=== PATIENT | female | born 1990 | race African-American/Black ===

== ENCOUNTER 2021-08-17 17:44 | Emergency (ER) | payer SELFPAY | END 2021-08-17 19:48 | disposition home or self-care (01) | LOC: CSHERS 17:44 | DX: J01.90 Acute sinusitis, unspecified (principal) | CPT/HCPCS: 99283 ==

== ENCOUNTER 2021-11-20 22:09 | Emergency (ER) | payer SELFPAY ==
[2021-11-21 15:38] LABS: SARS-CoV-2 PCR by NAA Not Detected (NotDetected)
== END 2021-11-21 00:39 | disposition home or self-care (01) ==
LOC: CSHERS 22:09
DX: J06.9 Acute upper respiratory infection, unspecified (principal); Z20.822 Contact with and (suspected) exposure to COVID-19
CPT/HCPCS: 99283; U0003; U0005

== ENCOUNTER 2022-03-16 19:46 | Emergency (ER) | payer SELFPAY ==
[2022-03-16 20:21] LABS: #Basophils 0.1 10x3/uL (0.0-0.2); #Monocytes 0.7 10x3/uL (0.0-1.1); #Neutrophils 5.2 10x3/uL (1.5-8.4); %Basophils 0.6 % (0.0-2.0); %Eosinophils 0.4 % (0.0-6.0); %Lymphocytes 35.2 % (18.0-47.0); %Monocytes 7.1 % (0.0-10.0); %Neutrophils 56.5 % (40.0-75.0); Hemoglobin 13.3 g/dL (12.0-15.5); Mean Corpuscular HGB CONC 32.6 g/dL (32.0-36.0); Mean Corpuscular Hemoglobin 26.7 pg (27.0-33.0); Mean Corpuscular Volume 81.9 fl (81.6-98.3); Mean Platelet Volume 10.1 fl (7.4-10.4); Platelet Count 332 10x3/uL (150-450); RBC Distribution Width 13.6 % (11.5-14.5); Red Blood Cell (RBC) Count 4.98 10x6/uL (3.90-5.03); White Blood Cell (WBC) Count 9.3 10x3/uL (3.5-10.5)
[2022-03-16] MEDS ORDERED: Lorazepam 2 MG/ML VIAL ONE (20:21)
[2022-03-16 20:28] LABS: BHCG - Serum Negative (NEGATIVE); Pregs Control Background? CLEAR/WHITE (CLR/WHITE); Pregs Control Bar Appear? YES (CONTROL BAR)
[2022-03-16 20:35] LABS: ALT (SGPT) 26 U/L (8-55); AST (SGOT) 21 U/L (5-34); Albumin 4.7 g/dL (3.5-5.0); Alkaline Phosphatase 63 U/L (40-110); Anion Gap 16 mmol/L (10-20); BUN (Urea Nitrogen) 14 mg/dL (7.0-18.7); Bilirubin, Total 0.6 mg/dL (0.2-1.2); Calc. Creatinine Clearance 0 mL/min (70-130); Calcium 10.1 mg/dL (7.8-10.44); Carbon Dioxide 23 mmol/L (22-29); Chloride 105 mmol/L (98-107); Globulin 3.7 g/dL (2.4-3.5); Glucose 105 mg/dL (70-105); Lipase 16 U/L (8-78); Potassium 3.7 mmol/L (3.5-5.1); Protein, Total 8.4 g/dL (6.0-8.3); Sodium 140 mmol/L (136-145)
[2022-03-16 21:17] LABS: Bilirubin Neg (Negative); Blood, Urine Negative (Negative); Clarity Clear (Clear); Glucose, Urine (Dipstick) Normal (Negative); Ketone, Urine 50 mg/dL (Negative); Leukocyte 25 (Negative); Nitrite Negative (Negative); Protein, Urine (Dipstick) 15 mg/dl (Neg-Trace)
[2022-03-16 21:25] LABS: Amphetamine Not Detected (NotDetected); Barbiturates Screen Not Detected (NotDetected); Benzodiazepine Screen Not Detected (NotDetected); Cocaine Metabolite Screen Not Detected (NotDetected); Methadone Not Detected (NotDetected); Methamphetamine Not Detected (NotDetected); Opiate Screen Not Detected (NotDetected); Oxycodone Screen Not Detected (NotDetected); Phencyclidine (PCP) Not Detected (NotDetected); THC/Cannabinoid Screen Detected (NotDetected); Tricyclic Screen Not Detected (NotDetected)
[2022-03-16] MEDS ORDERED: Aspirin 325 MG TAB ONE (21:55)
[2022-03-16 22:03] LABS: Bacteria/HPF Rare-Few HPF (None Seen); RBC/HPF 0-3 HPF (0-3)
[2022-03-16] MEDS ORDERED: Ketorolac Tromethamine 30 MG/ML VIAL ONE (22:03)
== END 2022-03-16 22:28 | disposition home or self-care (01) ==
LOC: CSHERS 19:46
DX: R07.89 Other chest pain (principal); F41.9 Anxiety disorder, unspecified; F32.A Depression, unspecified
CPT/HCPCS: 71045; 80053; 80306; 81003; 81015; 83605; 83690; 84484; 84703; 85025; 85379; 93005; 96374; 96375; J1885; J2060

== ENCOUNTER 2023-06-12 15:53 | Inpatient (IN) | payer SELFPAY ==
[~2023-06-12 15:53] MED LIST: Iopamidol 370 76% 100 ML VIAL ONE
[2023-06-12 17:05] LABS: #Eosinphils 0.1 10x3/uL (0.0-0.5); #Monocytes 0.5 10x3/uL (0.0-1.1); #Neutrophils 3.9 10x3/uL (1.5-8.4); %Basophils 0.4 % (0.0-2.0); %Eosinophils 1.6 % (0.0-6.0); %Lymphocytes 37.4 % (18.0-47.0); %Monocytes 7.2 % (0.0-10.0); %Neutrophils 53.3 % (40.0-75.0); Hematocrit 39.8 % (34.9-44.5); Hemoglobin 12.7 g/dL (12.0-15.5); Mean Corpuscular HGB CONC 31.9 g/dL (32.0-36.0); Mean Corpuscular Hemoglobin 27.2 pg (27.0-33.0); Mean Corpuscular Volume 85.2 fl (81.6-98.3); Mean Platelet Volume 10.6 fl (7.4-10.4); Platelet Count 276 10x3/uL (150-450); RBC Distribution Width 13.6 % (11.5-14.5); Red Blood Cell (RBC) Count 4.67 10x6/uL (3.90-5.03); White Blood Cell (WBC) Count 7.4 10x3/uL (3.5-10.5)
[2023-06-12 17:21] LABS: Troponin I Less than 0.010 ng/mL (< 0.028)
[2023-06-12 17:22] LABS: BHCG - Serum Negative (NEGATIVE); Pregs Control Background? CLEAR/WHITE (CLR/WHITE); Pregs Control Bar Appear? YES (CONTROL BAR)
[2023-06-12 17:35] LABS: ALT (SGPT) 18 U/L (8-55); AST (SGOT) 25 U/L (5-34); Alkaline Phosphatase 75 U/L (40-110); Anion Gap 15 mmol/L (10-20); BUN (Urea Nitrogen) 8 mg/dL (7.0-18.7); Bilirubin, Total 0.3 mg/dL (0.2-1.2); CK (CPK) 311 U/L (29-168); Calc. Creatinine Clearance 0 mL/min (70-130); Calcium 8.8 mg/dL (7.8-10.44); Carbon Dioxide 20 mmol/L (22-29); Chloride 108 mmol/L (98-107); Estimated GFR 117; Globulin 3.2 g/dL (2.4-3.5); Glucose 80 mg/dL (70-105); Lipase 23 U/L (8-78); Magnesium 2.1 mg/dL (1.6-2.6); Potassium 4.1 mmol/L (3.5-5.1); Protein, Total 7.2 g/dL (6.0-8.3); Sodium 139 mmol/L (136-145)
[2023-06-12] MEDS ORDERED: Ketorolac Tromethamine 30 MG/ML VIAL ONE (18:41)
[2023-06-12] MEDS ORDERED: fentaNYL 50 mcg/mL 1 mL Vial ONE (19:16)
[2023-06-12] MEDS ORDERED: Aspirin 81 mg Enteric Coated Tablet ONE (19:17)
[2023-06-12] MEDS ORDERED: Aspirin Chewable 81 MG TAB ONE (19:19)
[2023-06-12] MEDS ORDERED: Acetaminophen 325 MG TAB PO PRN (20:51)
[2023-06-12] MEDS ORDERED: Calcium Carbonate 500 MG ChewTAB PO PRN (20:51)
[2023-06-12] MEDS ORDERED: Ondansetron PF 4 MG/2 ML Vial IVP PRN (20:51)
[2023-06-12] MEDS ORDERED: Guaifenesin DM 100-10/5 ML UDCUP PO PRN (20:51)
[2023-06-12] MEDS ORDERED: Lactated Ringer's 1,000 ML IV SCH ×2 (21:00)
[2023-06-12] MEDS ORDERED: Lactated Ringer's 500 ML IV SCH (21:00)
[2023-06-12 22:38] VITALS: BMI 33.0
[2023-06-12] MEDS ORDERED: Lidocaine 4% Patch TD SCH (23:00)
[2023-06-12] MEDS ORDERED: Ketorolac Tromethamine 30 MG/ML VIAL IVP SCH (23:00)
[2023-06-12] MEDS: Nicotine 14 MG PATCH TD SCH (23:08)
[2023-06-13] MEDS: Dextrose 5%-Lactated Ringers 1,000 ML IV SCH ×4 (01:16→21:58)
[2023-06-13 07:14] LABS: ALT (SGPT) 15 U/L (8-55); AST (SGOT) 15 U/L (5-34); Albumin 3.4 g/dL (3.5-5.0); Alkaline Phosphatase 61 U/L (40-110); Anion Gap 12 mmol/L (10-20); BUN (Urea Nitrogen) 8 mg/dL (7.0-18.7); Bilirubin, Total 0.3 mg/dL (0.2-1.2); CK (CPK) 187 U/L (29-168); Calc. Creatinine Clearance 160 mL/min (70-130); Calcium 8.3 mg/dL (7.8-10.44); Carbon Dioxide 22 mmol/L (22-29); Chloride 107 mmol/L (98-107); Estimated GFR 117; Globulin 2.5 g/dL (2.4-3.5); Glucose 96 mg/dL (70-105); Potassium 3.7 mmol/L (3.5-5.1); Protein, Total 5.9 g/dL (6.0-8.3); Sodium 137 mmol/L (136-145)
[2023-06-13 07:20] LABS: #Basophils 0.1 10x3/uL (0.0-0.2); #Eosinphils 0.2 10x3/uL (0.0-0.5); #Monocytes 0.4 10x3/uL (0.0-1.1); #Neutrophils 2.3 10x3/uL (1.5-8.4); %Basophils 0.9 % (0.0-2.0); %Eosinophils 2.9 % (0.0-6.0); %Lymphocytes 45.8 % (18.0-47.0); %Monocytes 7.8 % (0.0-10.0); %Neutrophils 42.4 % (40.0-75.0); Hematocrit 36.1 % (34.9-44.5); Hemoglobin 11.4 g/dL (12.0-15.5); Mean Corpuscular HGB CONC 31.6 g/dL (32.0-36.0); Mean Corpuscular Hemoglobin 26.6 pg (27.0-33.0); Mean Corpuscular Volume 84.1 fl (81.6-98.3); Mean Platelet Volume 10.5 fl (7.4-10.4); Platelet Count 278 10x3/uL (150-450); RBC Distribution Width 13.6 % (11.5-14.5); Red Blood Cell (RBC) Count 4.29 10x6/uL (3.90-5.03); White Blood Cell (WBC) Count 5.5 10x3/uL (3.5-10.5)
[2023-06-13 08:15] LABS: Bilirubin Neg (Negative); Blood, Urine Negative (Negative); Clarity Slightly Cloudy (Clear); Glucose, Urine (Dipstick) Normal (Negative); Ketone, Urine Negative (Negative); Leukocyte 500 (Negative); Nitrite Negative (Negative); Protein, Urine (Dipstick) Negative (Neg-Trace); Specific Gravity, Urine 1.015 (1.005-1.030); Urobilinogen Normal mg/dL (Less than 2)
[2023-06-13 08:23] LABS: Amphetamine Not Detected (NotDetected); Barbiturates Screen Not Detected (NotDetected); Benzodiazepine Screen Not Detected (NotDetected); Cocaine Metabolite Screen Not Detected (NotDetected); Methadone Not Detected (NotDetected); Methamphetamine Not Detected (NotDetected); Opiate Screen Not Detected (NotDetected); Oxycodone Screen Not Detected (NotDetected); Phencyclidine (PCP) Not Detected (NotDetected); THC/Cannabinoid Screen Not Detected (NotDetected); Tricyclic Screen Not Detected (NotDetected)
[2023-06-13] MEDS: busPIRone HCl 5 MG TAB PO SCH ×2 (08:25→20:19)
[2023-06-13] MEDS: FLUoxetine HCl 20 MG CAP PO SCH (08:25)
[2023-06-13 08:56] LABS: Bacteria/HPF 2+ HPF (None Seen); RBC/HPF 0-3 HPF (0-3)
[2023-06-13] MEDS ORDERED: Transdermal Patch Removal TOP SCH (11:00)
[2023-06-13] MEDS: Acetaminophen 500 MG TAB PO PRN (17:42)
[2023-06-13] MEDS: Nicotine 14 MG PATCH TD SCH (21:58)
[2023-06-14 04:38] LABS: Troponin I Less than 0.010 ng/mL (< 0.028)
[2023-06-14] MEDS: Dextrose 5%-Lactated Ringers 1,000 ML IV SCH (06:33)
[2023-06-14] MEDS: Acetaminophen 500 MG TAB PO PRN (07:03)
[2023-06-14] MEDS: FLUoxetine HCl 20 MG CAP PO SCH (09:11)
[2023-06-14] MEDS: busPIRone HCl 5 MG TAB PO SCH (09:11)
[2023-06-14 13:42] VITALS: BP 125/75; TEMP 98.3
== END 2023-06-14 14:30 | disposition home or self-care (01) | DRG 312 ==
LOC: CSHERS 15:53 → CSHTELE 22:21
PROVIDERS: ADMIT Student in an Organized Health Care Education/Training Program; ATTEND Hospitalist
DX: I95.1 Orthostatic hypotension (principal); E86.0 Dehydration; R93.0 Abnormal findings on diagnostic imaging of skull and head, not elsewhere classified; F41.9 Anxiety disorder, unspecified; F31.9 Bipolar disorder, unspecified; F43.10 Post-traumatic stress disorder, unspecified; I10 Essential (primary) hypertension; Z79.899 Other long term (current) drug therapy
CPT/HCPCS: 36415; 36416; 70450; 70551; 71275; 72125; 80053; 80306; 81001; 82550; 83690; 83735; 83880; 84443; 84484; 84703; 85025; 93005; 93306; 96374; J1650; J1885; J3010; J7120; Q9967

== ENCOUNTER 2023-12-24 16:47 | Emergency (ER) | payer SELFPAY ==
[2023-12-24] MEDS ORDERED: Ketorolac Tromethamine 30 MG (1 mL) VIAL ONE (17:32)
[2023-12-24 17:47] LABS: BHCG - Serum Negative (NEGATIVE); Pregs Control Background? CLEAR/WHITE (CLR/WHITE); Pregs Control Bar Appear? YES (CONTROL BAR)
[2023-12-24 17:52] LABS: ALT (SGPT) 24 U/L (8-55); AST (SGOT) 20 U/L (5-34); Albumin 4.1 g/dL (3.5-5.0); Alkaline Phosphatase 77 U/L (40-110); Anion Gap 11 mmol/L (10-20); BUN (Urea Nitrogen) 14 mg/dL (7.0-18.7); Bilirubin, Total 0.3 mg/dL (0.2-1.2); Calc. Creatinine Clearance 0 mL/min (70-130); Carbon Dioxide 25 mmol/L (22-29); Chloride 108 mmol/L (98-107); Estimated GFR 97; Globulin 3.2 g/dL (2.4-3.5); Glucose 80 mg/dL (70-105); Potassium 3.9 mmol/L (3.5-5.1); Protein, Total 7.3 g/dL (6.0-8.3); Sodium 140 mmol/L (136-145)
[2023-12-24 17:56] LABS: #Basophils 0.1 10x3/uL (0.0-0.2); #Eosinphils 0.2 10x3/uL (0.0-0.5); #Monocytes 0.8 10x3/uL (0.0-1.1); #Neutrophils 3.9 10x3/uL (1.5-8.4); %Basophils 0.7 % (0.0-2.0); %Eosinophils 2.2 % (0.0-6.0); %Lymphocytes 31.3 % (18.0-47.0); %Monocytes 11.2 % (0.0-10.0); %Neutrophils 54.3 % (40.0-75.0); Hematocrit 40.2 % (34.9-44.5); Hemoglobin 12.6 g/dL (12.0-15.5); Mean Corpuscular HGB CONC 31.3 g/dL (32.0-36.0); Mean Corpuscular Hemoglobin 26.4 pg (27.0-33.0); Mean Corpuscular Volume 84.3 fl (81.6-98.3); Mean Platelet Volume 10.1 fl (7.4-10.4); Platelet Count 322 10x3/uL (150-450); RBC Distribution Width 13.8 % (11.5-14.5); Red Blood Cell (RBC) Count 4.77 10x6/uL (3.90-5.03); White Blood Cell (WBC) Count 7.2 10x3/uL (3.5-10.5)
== END 2023-12-24 19:00 | disposition home or self-care (01) ==
LOC: CSHERS 16:47
DX: E87.5 Hyperkalemia (principal); M79.10 Myalgia, unspecified site; F17.210 Nicotine dependence, cigarettes, uncomplicated
CPT/HCPCS: 80053; 84703; 85025; 96374; J1885

== ENCOUNTER 2024-07-26 11:36 | Emergency (ER) | payer SELFPAY ==
[2024-07-26] MEDS ORDERED: Ketorolac Tromethamine 30 MG (1 mL) VIAL ONE (12:01)
[2024-07-26 13:01] LABS: #Basophils 0.01 10x3/uL (0.0-0.2); #Eosinphils 0.04 10x3/uL (0.0-0.5); #Monocytes 0.48 10x3/uL (0.0-1.1); #Neutrophils 5.23 10x3/uL (1.5-8.4); %Basophils 0.1 % (0.0-2.0); %Eosinophils 0.6 % (0.0-6.0); %Lymphocytes 13.3 % (18.0-47.0); %Monocytes 7.2 % (0.0-10.0); %Neutrophils 78.5 % (40.0-75.0); Hematocrit 42.1 % (34.9-44.5); Hemoglobin 13.1 g/dL (12.0-15.5); Mean Corpuscular HGB CONC 31.1 g/dL (32.0-36.0); Mean Corpuscular Hemoglobin 26.5 pg (27.0-33.0); Mean Corpuscular Volume 85.2 fL (81.6-98.3); Mean Platelet Volume 9.6 fL (7.4-10.4); Platelet Count 294 10x3/uL (150-450); RBC Distribution Width 13.2 % (11.5-14.5); Red Blood Cell (RBC) Count 4.94 10x6/uL (3.90-5.03); White Blood Cell (WBC) Count 6.7 10x3/uL (3.5-10.5)
[2024-07-26 13:10] LABS: BHCG - Serum Negative (NEGATIVE); Pregs Control Background? CLEAR/WHITE (CLR/WHITE); Pregs Control Bar Appear? YES (CONTROL BAR)
[2024-07-26 13:18] LABS: ALT (SGPT) 51 U/L (8-55); AST (SGOT) 37 U/L (5-34); Albumin 3.8 g/dL (3.5-5.0); Alkaline Phosphatase 88 U/L (40-110); Anion Gap 13 mmol/L (10-20); BUN (Urea Nitrogen) 12 mg/dL (7.0-18.7); Bilirubin, Total 0.8 mg/dL (0.2-1.2); Calc. Creatinine Clearance 0 mL/min (70-130); Calcium 8.8 mg/dL (7.8-10.44); Carbon Dioxide 19 mmol/L (22-29); Chloride 107 mmol/L (98-107); Estimated GFR 109; Globulin 3.3 g/dL (2.4-3.5); Glucose 87 mg/dL (70-105); Potassium 4.4 mmol/L (3.5-5.1); Protein, Total 7.1 g/dL (6.0-8.3); Sodium 135 mmol/L (136-145)
[2024-07-26 13:22] LABS: Troponin I 0.013 ng/mL (< 0.028)
== END 2024-07-26 14:46 | disposition home or self-care (01) ==
LOC: CSHERS 11:36
DX: J06.9 Acute upper respiratory infection, unspecified (principal); R07.89 Other chest pain; F17.210 Nicotine dependence, cigarettes, uncomplicated
CPT/HCPCS: 36415; 71045; 80053; 83605; 84484; 84703; 85025; 85379; 93005; 96374; J1885